=== PATIENT | female | born 1980 | race Caucasian/White ===

== ENCOUNTER 2022-01-05 21:15 | Emergency (ER) | payer OTHER ==
[~2022-01-05] VITALS: Ht 165.1 cm; Wt 69.5 kg
[2022-01-05 21:27] VITALS: TEMP 97.3
[2022-01-05 23:41] VITALS: BP 120/76; PULSE 82
== END 2022-01-05 23:41 | disposition home or self-care (01) ==
LOC: COL.ER 21:15
DX: S09.90XA Unspecified injury of head, initial encounter (principal); S01.412A Laceration without foreign body of left cheek and temporomandibular area, initial encounter; W21.07XA Struck by softball, initial encounter; Y93.64 Activity, baseball